=== PATIENT | male | born 1990 | race Caucasian/White ===

== ENCOUNTER 2021-02-07 17:30 | Emergency (ER) | payer BC ==
[2021-02-07 20:59] LABS: ANION GAP 10.6 mEq/L (7-13); CHLORIDE,CL 101 mmol/L (98-107); SODIUM,NA 137 mmol/L (136-145)
[2021-02-07] MEDS ORDERED: Doxycycline Monohydrate 100 MG Cap PO ONE (21:10)
[2021-02-07] MEDS ORDERED: cefTRIAXone 1 GM, Lidocaine 1% 2.1 ML IM ONE ×2 (21:10)
--- NOTE | 2021-02-07 21:15 | EDM.PDOC ---
ED HPI GENERAL MEDICAL PROBLEM - General Chief Complaint: Skin Complaint Stated Complaint: INFECTION IN LEFT OUTTER THIGH Time Seen by Provider: 02/07/21 20:00 Source of Information: Reports: Patient History Limitations: Reports: No Limitations - History of Present Illness INITIAL COMMENTS - FREE TEXT/NARRATIVE: ED with c/o redness to upper left thigh, noted last night, seemed larger tonight and increased redness. Denied justy No known tisck bite, had prior remote cellulitis in past. Had keflex at home so took some during day. No fever or chills. Treatments [employer]: Reports: NSAIDS Left Thigh Pain Score (Numeric/FACES): 7 - Related Data Allergies Allergy/AdvReac Type Severity Reaction Status Date / Time azithromycin [From Zithromax] Allergy Hives Verified 02/07/21 19:51 Home Meds: Home Meds Citalopram [Citalopram HBr] 10 mg PO DAILY 02/07/21 [History] Zolpidem [Ambien] 10 mg PO BEDTIME 02/07/21 [History] buPROPion HCL [Wellbutrin Xl] 150 mg PO DAILY 02/07/21 [History] Past Medical History - Past Health History Medical/Surgical History: Denies Medical/Surgical History Psychiatric History: Reports: Depression Social & Family History - Family History Family Medical History: No Pertinent Family History - Tobacco Use Tobacco Use Status *Q: Never Tobacco User Second Hand Smoke Exposure: No - Caffeine Use Caffeine Use: Reports: Energy Drinks - Recreational Drug Use Recreational Drug Use: No - Living Situation & Occupation Living situation: Reports: Occupation: Employed (Works in [employer]. Resides in [place]) ED ROS GENERAL - Review of Systems Review Of Systems: Comprehensive ROS is negative, except as noted in HPI. ED EXAM, SKIN/RASH Exam: See Below Exam Limited By: No Limitations General Appearance: Alert, No Apparent Distress Eye Exam: Bilateral Eye: EOMI Ears: Normal External Exam Nose: Normal Inspection Throat/Mouth: Normal Inspection Head: Atraumatic, Normocephalic Neck: Normal Inspection Respiratory/Chest: No Respiratory Distress Cardiovascular: Normal Peripheral Pulses, Regular Rate, Rhythm GI/Abdominal: Normal Bowel Sounds Back Exam: Normal Inspection Extremities: Redness (left thigh) Neurological: Alert, Oriented Skin: Dry, Intact, Other (mild redness left thigh, area marked. minimal warmth, mild tenderness. no obvious lesion.) Course - Vital Signs Last Recorded V/S: Last Vital Signs Temp 99.8 F 02/07/21 19:45 Pulse 84 02/07/21 19:45 Resp 16 02/07/21 19:45 BP 130/80 02/07/21 19:45 Pulse Ox 100 02/07/21 19:45 - Orders/Labs/Meds Labs: Laboratory Tests 02/07/21 02/07/21 02/07/21 Range/Units 20:05 20:05 20:10 WBC 10.7 H (5.0-10.0) 10^3/uL RBC 5.72 (4.6-6.2) 10^6/uL Hgb 15.8 (14.0-18.0) g/dL Hct 48.4 (40.0-54.0) % MCV 84.6 (80-100) fL MCH 27.6 (27.0-34.0) pg MCHC 32.6 L (33.0-35.0) g/dL Plt Count 295 (150-450) 10^3/uL Neut % (Auto) 76.0 H (42.2-75.2) % Lymph % (Auto) 13.8 L (20.5-50.1) % [place] % (Auto) 9.5 H (2-8) % Eos % (Auto) 0.5 L (1.0-3.0) % Baso % (Auto) 0.2 (0.0-1.0) % Sodium 137 (136-145) mmol/L Potassium 3.6 (3.5-5.1) mmol/L Chloride 101 (98-107) mmol/L Carbon Dioxide 29 (21-32) mmol/L Anion Gap 10.6 (7-13) mEq/L BUN 10 (7-18) mg/dL Creatinine 1.14 (0.70-1.30) mg/dL Est Cr Clr Drug Dosing 97.83 mL/min Estimated GFR (MDRD) > 60 BUN/Creatinine Ratio 8.8 (No establ ref range) Glucose 76 (70-99) mg/dL Lactic Acid 0.6 (0.4-2.0) mmol/L Calcium 8.2 L (8.5-10.1) mg/dL Total Bilirubin 0.5 (0.2-1.0) mg/dL AST 38 H (15-37) U/L ALT 46 (16-63) U/L Alkaline Phosphatase 63 (46-116) U/L Total Protein 7.3 (6.4-8.2) g/dL Albumin 3.3 L (3.4-5.0) g/dL Globulin 4.0 Albumin/Globulin Ratio 0.83 Meds: Medications Discontinued Medications Generic Name Dose Route Start Last Admin Trade Name Wongq PRN Reason Stop Dose Admin Ceftriaxone Sodium 1 gm/ 0 gm 02/07/21 21:10 02/07/21 21:19 Lidocaine HCl 2.1 ml IM 02/07/21 21:11 2.5 inj ONETIME ONE Administration Doxycycline Monohydrate 100 mg 02/07/21 21:10 02/07/21 21:21 Doxycycline Monohydrate 100 Mg Cap PO 02/07/21 21:11 100 mg ONETIME ONE Administration Departure - Departure Time of Disposition: 21:12 Disposition: Home, Self-Care 01 Condition: Good Clinical Impression: Cellulitis Qualifiers: Site of cellulitis: extremity Site of cellulitis of extremity: lower extremity Laterality: left Qualified Code(s): L03.116 - Cellulitis of left lower limb - Discharge Information *PRESCRIPTION DRUG MONITORING PROGRAM REVIEWED*: No *COPY OF PRESCRIPTION DRUG MONITORING REPORT IN PATIENT [place]: No Instructions: Cellulitis, Adult Forms: ED Department Discharge Additional Instructions: Doxycycline 100mg one twice daily alternate tylenol and ibuprofen every 4 hours as needed for discomfort clinic recheck Tursday, Follow up sooner, fever, increased redness swelling/ pain Sepsis Event Note (ED) - Evaluation Sepsis Screening Result: No Definite Risk
== END 2021-02-07 21:24 | disposition home or self-care (01) ==
LOC: DL.ED 17:30
DX: L03.116 Cellulitis of left lower limb (principal); Z88.1 Allergy status to other antibiotic agents; Z79.899 Other long term (current) drug therapy
CPT/HCPCS: 80053; 83605; 85025; 86617; 86618; 96372; 99283; A9270-GY; J0696